=== PATIENT | male | born 1960 | race American Indian/Alaskan Native ===

== ENCOUNTER 2020-04-05 07:42 | Emergency (ER) | payer MEDICARE ==
[2020-04-05] MEDS ORDERED: SODIUM CHLORIDE 0.9% 1000 ML 1,000 ML IV ONE (08:02)
--- NOTE | 2020-04-05 08:03 | Event Note ---
ED Screening Note ED Screening Note: ILL APPEARING recent admit for covid reports via ems that hes vomited blood This initial assessment/diagnostic orders/clinical plan/treatment(s) is/are subject to change based on patients health status, clinical progression and re- assessment by fellow clinical providers in the ED. Further treatment and workup at subsequent clinical providers discretion. Patient/guardian urged not to elope from the ED as their condition may be serious if not clinically assessed and managed. Initial orders include: labs/ua/xray
[2020-04-05 09:16] LABS: Basophils % (Auto) 0.1 % (0.0-1.8); Hematocrit 48.3 % (35.5-45.6); Hemoglobin 15.7 gm/dl (11.8-15.2); Lymphocytes # (Auto) 0.7 K/mm3 (1.2-5.4); Lymphocytes % (Auto) 4.1 % (13.4-35.0); Mean Corpuscular HGB Conc 32 % (32-34); Mean Corpuscular Volume 84 fl (84-94); Monocytes % (Auto) 5.9 % (0.0-7.3); Platelet Count 333 K/mm3 (140-440); Red Blood Count 5.74 M/mm3 (3.65-5.03); Red Cell Distribution Width 15.1 % (13.2-15.2)
--- NOTE | 2020-04-05 09:21 | XRay Report ---
ABDOMEN 3 VIEW(S) WITH ONE VIEW CHEST INDICATION / CLINICAL INFORMATION: abd pain vomiting blood recent covid. COMPARISON: CT abdomen pelvis 03/27/2020 and CTA chest same day FINDINGS: TUBES / LINES: None. BOWEL GAS PATTERN: Nonobstructive gas pattern. Moderate stool throughout the colon suggesting constip ation. FREE AIR / EXTRALUMINAL GAS: None seen. ADDITIONAL FINDINGS: Extensive atherosclerotic calcification. CHEST: Bilateral lower lung infiltrates. Findings appear similar when compared to 03/27/2020 allowing for differences in modality. Approximately 4-5 cm cavitary lesion in the left upper lung correlating to finding on recent CT chest examination. IMPRESSION: 1. No acute abnormality. 2. Stool throughout the colon suggesting constipation. 3. Lower lung findings suggestive of atypical/viral pneumonia and left upper lung cavitary focus with internal density suggesting possible mycetoma or cavitary neoplasm, as previously noted. Signer Name: Afshin Irvin MD Signed: 04/05/2020 9:17 AM Workstation Name: [id number]
[2020-04-05 09:29] LABS: INR 1.08 (0.87-1.13)
[2020-04-05 09:39] LABS: Alanine Aminotransferase 101 units/L (7-56); Blood Urea Nitrogen 18 mg/dL (9-20); Calcium 8.3 mg/dL (8.4-10.2); Hemolysis Index 44
[2020-04-05 09:41] LABS: BUN/Creatinine Ratio 30
[2020-04-05] MEDS ORDERED: ONDANSETRON 4 MG/2 ML INJ IV ONE (10:12)
[2020-04-05] MEDS ORDERED: DEXTROSE 50% IN WATER (25GM) 50 ML VIAL IV ONE (10:48)
[2020-04-05] MEDS ORDERED: PANTOPRAZOLE 40 MG INJ IV ONE (10:48)
[2020-04-05] MEDS ORDERED: INSULIN REGULAR, HUMAN 100 UNIT/ML 3ML VIAL IV ONE (10:48)
[2020-04-05] MEDS ORDERED: D5W/0.45% NACL 1,000 ML IV SCH (11:00)
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
[2020-04-05] MEDS ORDERED: INSULIN REGULAR, HUMAN 100 UNITS/1 ML ONE (11:50)
--- NOTE | 2020-04-05 13:27 | Cat Scan Report ---
CT abdomen pelvis w con INDICATION: Abdominal pain. TECHNIQUE: All CT scans at this location are performed using the following dose modulation technique: Automated exposure control. CONTRAST: Omnipaque 300, 100 cc IV injection. COMPARISON: CT abdomen 03/27/2020. CT ABDOMEN: Prominent basilar interstitial lung disease remains. Superimposed groundglass opacity has improved. The parenchymal organs are unremarkable in appearance. Negative for abdominal mass, fluid or inflamma tion. The bowel is not dilated or thickened. CT PELVIS: Negative for mass, adenopathy or inflammation. The bladder is mildly distended but demonst rates no wall thickening. Atherosclerotic ectasia involves the aortoiliac system. IMPRESSION: 1. Persistent basilar interstitial lung disease with improvement in superimposed groundglass opacity. 2. No acute inflammatory process of the abdomen or pelvis. Signer Name: Gabriel Muller MD Signed: 04/05/2020 1:22 PM Workstation Name: [id number]
[2020-04-05 14:23] VITALS: BP 1341/81
[2020-04-05] MEDS ORDERED: SODIUM POLYSTYRENE 15 GM/60 ML ORAL LIQD PO ONE (15:02)
[2020-04-05] MEDS ORDERED: ACETAMINOPHEN 325 MG TAB PO PRN (16:04)
[2020-04-05] MEDS ORDERED: METOCLOPRAMIDE 10 MG TAB PO PRN (16:04)
[2020-04-06] MEDS ORDERED: amLODIPine 5 MG TAB PO SCH (10:00)
[2020-04-06] MEDS ORDERED: NON-FORMULARY EACH (Dexamethasone [Dexamethasone] 6 MG Tablet) PO SCH (10:00)
[2020-04-06] MEDS ORDERED: PANTOPRAZOLE 40 MG TAB PO SCH (10:00)
[2020-04-06] MEDS ORDERED: DEXAMETHASONE 2 MG TAB PO SCH (10:00)
== END 2020-04-05 18:41 | disposition home or self-care (01) ==
LOC: ED 07:42
DX: E87.5 Hyperkalemia (principal); K92.0 Hematemesis; J98.4 Other disorders of lung; R10.9 Unspecified abdominal pain; R79.89 Other specified abnormal findings of blood chemistry; I10 Essential (primary) hypertension; J45.909 Unspecified asthma, uncomplicated; Z87.898 Personal history of other specified conditions; Z79.899 Other long term (current) drug therapy; Z98.890 Other specified postprocedural states; Z20.828 Contact with and (suspected) exposure to other viral communicable diseases
CPT/HCPCS: 36415; 74022; 74177; 80053; 82140; 84484; 85025; 85610; 87040; 93005; 96361; 96374; 96375; 99285; C9113; J2405; J7030; Q9967; J1815; J8540